=== PATIENT | female | born 1965 | race American Indian/Alaskan Native ===

== ENCOUNTER 2020-12-13 17:22 | Emergency (ER) | payer MEDICAID ==
[2020-12-13] MEDS ORDERED: HALOPERIDOL LACTATE 5 MG/1 ML INJ ONE (17:29)
[2020-12-13] MEDS ORDERED: HALOPERIDOL LACTATE 5 MG/1 ML INJ IM ONE (17:30)
--- NOTE | 2020-12-13 18:28 | Emergency Department Report ---
ED General Adult HPI - General Chief complaint: Psych Stated complaint: EVALUATION Time Seen by Provider: 12/13/20 17:39 Source: family Mode of arrival: Ambulatory Limitations: No Limitations - History of Present Illness Initial comments: Patient presents to the ED via her daughter for psychotic behavior. The daughter states that she has been a parking lot since 1:40 PM trying to get her mother to come in. Eventually the mother got the car became very aggressive and agitated in the parking lot thus PD was called. Patient escorted into the emergency department via PD. The daughter states the mom is from [facility] and has a history of bipolar and schizoaffective disorder. The patient has been banned per the daughter from the hospital in [place]. The daughter is from [facility] and drove up to get her mom from [place]. She states that she called several mental health facilities and spoke to someone Nelly was a mental health counselor who instructed her to bring the patient to our hospital for evaluation. Patient is combative and agitated on initial evaluation and trying to spit on people. Patient is not compliant with medications. Patient is not cooperative with history. -: unknown Consistency: constant Improves with: none Worsens with: none - Related Data Allergies Allergy/AdvReac Type Severity Reaction Status Date / Time No Known Allergies Allergy Verified 12/13/20 17:50 ED Review of Systems ROS: Stated complaint: EVALUATION Other details as noted in HPI Comment: Unobtainable due to pts medical conditions ED Physical Exam - General Limitations: No Limitations General appearance: alert, other (Agitated) - Head Head exam: Present: atraumatic, normocephalic - Eye Eye exam: Present: normal appearance, PERRL - ENT ENT exam: Present: other (Trach in place) - Respiratory Respiratory exam: Present: normal lung sounds bilaterally. Absent: respiratory distress - Cardiovascular Cardiovascular Exam: Present: normal rhythm, tachycardia - GI/Abdominal GI/Abdominal exam: Present: soft, normal bowel sounds. Absent: distended, tenderness - Rectal Rectal exam: Present: deferred - Extremities Exam Extremities exam: Present: normal inspection - Neurological Exam Neurological exam: Present: alert, other (Not able to complete neurological exam due to patient's condition) - Psychiatric Psychiatric exam: Present: agitated, other (Psychotic) - Skin Skin exam: Present: warm, dry, intact, normal color. Absent: rash ED Course Vital Signs 12/13/20 12/13/20 12/13/20 21:16 22:39 23:42 Temperature 98.3 F Pulse Rate 99 H Respiratory 18 Rate Blood Pressure Blood Pressure 201/101 214/67 [Right] O2 Sat by Pulse 100 100 Oximetry 12/14/20 01:06 Temperature Pulse Rate 98 H Respiratory Rate Blood Pressure 214/67 Blood Pressure [Right] O2 Sat by Pulse Oximetry ED Medical Decision Making - Lab Data Result diagrams: 12/13/20 21:22 12/13/20 21:22 Lab Results 12/13/20 12/13/20 12/13/20 Range/Units 21:22 21:22 21:22 WBC 4.4 L (4.5-11.0) K/mm3 RBC 3.87 (3.65-5.03) M/mm3 Hgb 11.4 (10.1-14.3) gm/dl Hct 35.8 (30.3-42.9) % MCV 92 (79-97) fl MCH 30 (28-32) pg MCHC 32 (30-34) % RDW 17.5 H (13.2-15.2) % Plt Count 228 (140-440) K/mm3 Lymph % (Auto) 34.5 (13.4-35.0) % [place] % (Auto) 9.7 H (0.0-7.3) % Eos % (Auto) 1.9 (0.0-4.3) % Baso % (Auto) 1.2 (0.0-1.8) % Lymph # (Auto) 1.5 (1.2-5.4) K/mm3 [place] # (Auto) 0.4 (0.0-0.8) K/mm3 Eos # (Auto) 0.1 (0.0-0.4) K/mm3 Baso # (Auto) 0.1 (0.0-0.1) K/mm3 Seg Neutrophils % 52.7 (40.0-70.0) % Seg Neutrophils # 2.3 (1.8-7.7) K/mm3 Sodium 142 (137-145) mmol/L Potassium 3.6 (3.6-5.0) mmol/L Chloride 105.8 (98-107) mmol/L Carbon Dioxide 22 (22-30) mmol/L Anion Gap 18 mmol/L BUN 19 H (7-17) mg/dL Creatinine 0.7 (0.6-1.2) mg/dL Estimated GFR > 60 ml/min BUN/Creatinine Ratio 27 % Glucose 124 H (65-100) mg/dL Calcium 9.2 (8.4-10.2) mg/dL Total Bilirubin 0.30 (0.1-1.2) mg/dL AST 22 (5-40) units/L ALT 19 (7-56) units/L Alkaline Phosphatase 120 (35-129) units/L Total Protein 7.8 (6.3-8.2) g/dL Albumin 3.7 L (3.9-5) g/dL Albumin/Globulin Ratio 0.9 % TSH 2.020 (0.270-4.200) mlU/mL Salicylates (2.8-20.0) mg/dL Acetaminophen (10.0-30.0) ug/mL Plasma/Serum Alcohol (0-0.07) % 12/13/20 12/13/20 12/13/20 Range/Units 21:22 21:22 21:22 WBC (4.5-11.0) K/mm3 RBC (3.65-5.03) M/mm3 Hgb (10.1-14.3) gm/dl Hct (30.3-42.9) % MCV (79-97) fl MCH (28-32) pg MCHC (30-34) % RDW (13.2-15.2) % Plt Count (140-440) K/mm3 Lymph % (Auto) (13.4-35.0) % [place] % (Auto) (0.0-7.3) % Eos % (Auto) (0.0-4.3) % Baso % (Auto) (0.0-1.8) % Lymph # (Auto) (1.2-5.4) K/mm3 [place] # (Auto) (0.0-0.8) K/mm3 Eos # (Auto) (0.0-0.4) K/mm3 Baso # (Auto) (0.0-0.1) K/mm3 Seg Neutrophils % (40.0-70.0) % Seg Neutrophils # (1.8-7.7) K/mm3 Sodium (137-145) mmol/L Potassium (3.6-5.0) mmol/L Chloride (98-107) mmol/L Carbon Dioxide (22-30) mmol/L Anion Gap mmol/L BUN (7-17) mg/dL Creatinine (0.6-1.2) mg/dL Estimated GFR ml/min BUN/Creatinine Ratio % Glucose (65-100) mg/dL Calcium (8.4-10.2) mg/dL Total Bilirubin (0.1-1.2) mg/dL AST (5-40) units/L ALT (7-56) units/L Alkaline Phosphatase (35-129) units/L Total Protein (6.3-8.2) g/dL Albumin (3.9-5) g/dL Albumin/Globulin Ratio % TSH (0.270-4.200) mlU/mL Salicylates < 0.3 L (2.8-20.0) mg/dL Acetaminophen 5.0 L (10.0-30.0) ug/mL Plasma/Serum Alcohol < 0.01 (0-0.07) % - Medical Decision Making 1013 applied Awaiting mental health evaluation Awaiting medical clearance Critical care attestation.: If time is entered above; I have spent that time in minutes in the direct care of this critically ill patient, excluding procedure time. ED Disposition Clinical Impression: Psychosis Disposition: [address] [place] [address] Is pt being admited?: No Does the pt Need Aspirin: No Condition: Stable Referrals: PRIMARY CARE, [Primary Care Provider] - 3-5 Days
[2020-12-13 21:50] LABS: Basophils # (Auto) 0.1 K/mm3 (0.0-0.1); Basophils % (Auto) 1.2 % (0.0-1.8); Eosinophils # (Auto) 0.1 K/mm3 (0.0-0.4); Eosinophils % (Auto) 1.9 % (0.0-4.3); Hematocrit 35.8 % (30.3-42.9); Hemoglobin 11.4 gm/dl (10.1-14.3); Lymphocytes # (Auto) 1.5 K/mm3 (1.2-5.4); Lymphocytes % (Auto) 34.5 % (13.4-35.0); Mean Corpuscular HGB Conc 32 % (30-34); Mean Corpuscular Volume 92 fl (79-97); Monocytes # (Auto) 0.4 K/mm3 (0.0-0.8); Monocytes % (Auto) 9.7 % (0.0-7.3); Platelet Count 228 K/mm3 (140-440); Red Blood Count 3.87 M/mm3 (3.65-5.03); Red Cell Distribution Width 17.5 % (13.2-15.2)
[2020-12-13 22:07] LABS: Alanine Aminotransferase 19 units/L (7-56); Albumin 3.7 g/dL (3.9-5); Blood Urea Nitrogen 19 mg/dL (7-17); Calcium 9.2 mg/dL (8.4-10.2); Hemolysis Index 20
[2020-12-13 22:15] LABS: BUN/Creatinine Ratio 27
[2020-12-13] MEDS ORDERED: hydroCHLOROthiazide 25 MG TAB PO ONE (23:46)
[2020-12-14] MEDS ORDERED: hydrALAZINE 25 MG TAB PO ONE (00:59)
--- NOTE | 2020-12-14 08:39 | Consultation ---
History of Present Illness - Reason for Consult Consult date: 12/14/20 Reason for consult: psychosis - History of Present Psychiatric Illness Per ER Note: Patient presents to the ED via her daughter for psychotic behavior. The daughter states that she has been a parking lot since 1:40 PM trying to get her mother to come in. Eventually the mother got the car became very aggressive and agitated in the parking lot thus PD was called. Patient escorted into the emergency department via PD. The daughter states the mom is from [facility] and has a history of bipolar and schizoaffective disorder. The patient has been banned per the daughter from the hospital in [place]. The daughter is from [facility] and drove up to get her mom from [place]. She states that she called several mental health facilities and spoke to someone Nelly was a mental health counselor who instructed her to bring the patient to our hospital for evaluation. Patient is combative and agitated on initial evaluation and trying to spit on people. Patient is not compliant with medications. Patient is not cooperative with history. The patient was seen today. She is paranoid and aggressive. She is uncooperative. When I attempted to speak to her, she stared at me angrily and snares her nose at me. She refused to cooperate with the evaluation. PAST PSYCHIATRIC HISTORY Unable to assess PAST MEDICAL HISTORY: None reported Family Psychiatric History: None reported or documented SOCIAL HISTORY Unable to assess REVIEW OF SYSTEMS Unable to assess MENTAL STATUS EXAMINATION Unable to assess Assessment and Plan (1) Schizoaffective Disorder TREATMENT PLAN 1013 Olanzapine 5mg po daily Depakote DR 125mg po BID Trazodone 50mg po qhs Sitter: per primary Medical: per primary Disposition: Recommend acute psychiatric inpatient treatment Will follow. Thanks Case staffed with Dr. Garcia Medications and Allergies Allergies Allergy/AdvReac Type Severity Reaction Status Date / Time No Known Allergies Allergy Verified 12/13/20 17:50 Mental Status Exam - Vital signs Last Vital Signs Temp 98.3 F 12/13/20 21:16 Pulse 98 H 12/14/20 01:06 Resp 18 12/13/20 21:16 BP 214/67 12/14/20 01:06 Pulse Ox 100 12/13/20 23:42 Results Result Diagrams: 12/13/20 21:22 12/13/20 21:22 Abnormal lab results 12/13/20 12/13/2012/13/21 Range/Units 21:22 21:22 21:22 WBC 4.4 L (4.5-11.0) K/mm3 RDW 17.5 H (13.2-15.2) % Carbon % (Auto) 9.7 H (0.0-7.3) % BUN 19 H (7-17) mg/dL Glucose 124 H (65-100) mg/dL Albumin 3.7 L (3.9-5) g/dL Salicylates < 0.3 L (2.8-20.0) mg/dL Acetaminophen (10.0-30.0) ug/mL 12/13/20 Range/Units 21:22 WBC (4.5-11.0) K/mm3 RDW (13.2-15.2) % Carbon % (Auto) (0.0-7.3) % BUN (7-17) mg/dL Glucose (65-100) mg/dL Albumin (3.9-5) g/dL Salicylates (2.8-20.0) mg/dL Acetaminophen 5.0 L (10.0-30.0) ug/mL All other labs normal.
--- NOTE | 2020-12-14 11:13 | Event Note ---
Date: 12/14/20 Patient is continue to exhibit some paranoid and psychotic behavior. Also some aggression as well. Patient will to remain 1013. Mental health assessment for today is as below. Patient is medically cleared and will reviewed the patient's medications for reconciliation. Psychiatric Consult Note Patient Name: MARISOL FARNSWORTH Date of : 1965 Patient Status: Emergency Emergency Provider: ARLIN ASKEW Date: 12/14/20 08:38 Initialization Date: 12/14/20 08:38 History of Present Illness - Reason for Consult Consult date: 12/14/20 Reason for consult: psychosis - History of Present Psychiatric Illness Per ER Note: Patient presents to the ED via her daughter for psychotic behavior. The daughter states that she has been a parking lot since 1:40 PM trying to get her mother to come in. Eventually the mother got the car became very aggressive and agitated in the parking lot thus PD was called. Patient escorted into the emergency department via PD. The daughter states the mom is from [facility] and has a history of bipolar and schizoaffective disorder. The patient has been banned per the daughter from the hospital in [place]. The daughter is from [facility] and drove up to get her mom from [place]. She states that she called several mental health facilities and spoke to someone Nelly was a mental health counselor who instructed her to bring the patient to our hospital for evaluation. Patient is combative and agitated on initial evaluation and trying to spit on people. Patient is not compliant with medications. Patient is not cooperative with history. The patient was seen today. She is paranoid and aggressive. She is uncooperativ e. When I attempted to speak to her, she stared at me angrily and snares her nose at me. She refused to cooperate with the evaluation. PAST PSYCHIATRIC HISTORY Unable to assess PAST MEDICAL HISTORY: None reported Family Psychiatric History: None reported or documented SOCIAL HISTORY Unable to assess REVIEW OF SYSTEMS Unable to assess MENTAL STATUS EXAMINATION Unable to assess Assessment and Plan (1) Schizoaffective Disorder TREATMENT PLAN 1013 Olanzapine 5mg po daily Depakote DR 125mg po BID Trazodone 50mg po qhs Sitter: per primary Medical: per primary Disposition: Recommend acute psychiatric inpatient treatment Will follow. Thanks Case staffed with Dr. Garcia
[2020-12-14] MEDS: DIVALPROEX DR 125 MG TAB PO SCH ×2 (12:04→22:47)
[2020-12-14] MEDS ORDERED: traZODone 50 MG TAB PO SCH (22:00)
[2020-12-15] MEDS: DIVALPROEX DR 125 MG TAB PO SCH (09:34)
--- NOTE | 2020-12-15 11:01 | Event Note ---
Date: 12/15/20 The patient was evaluated in the emergency department for symptoms described in the history of present illness. He/she was evaluated in the context of the global COVID-19 pandemic, which necessitated consideration that the patient might be at risk for infection with the virus that causes COVID-19. Institutional protocols and algorithms that pertain to the evaluation of patients at risk for COVID-19 are in a state of rapid change based on information released by regulatory bodies including the CDC and federal and state organizations. These policies and algorithms were followed during the patient's care in the emergency department. Please note that these policies, procedures and recommendations changed on a rapid basis. Laboratory studies, vital signs, nursing documentation, ER documentation, and psychiatric documentation are reviewed and appreciated. Nursing team reports no acute events this morning or concerns. The patient is requesting to have her 6 uncuffed tracheostomy tube change. Have reached out to respiratory therapy to request assistance with this. Have also requested that nursing team reconcile home medications. The patient is awake and ambulating and does not appear to be in any acute distress. The patient was deemed medically suitable for psychiatric disposition and placement during his initial ER evaluation. The patient continues to remain medically suitable for psychiatric placement and disposition. sHe is currently pending psychiatric placement. 12/15/2020; 13: 28 PM Patient provided 6 Portuguese tracheostomy tube for change, which she changed herself without difficulty. She is awake, alert, oriented, sober, and walking with a steady gait. She denies physical complaints to myself. Psychiatric team have recommended discharge and discontinuation of 1013. The patient may follow-up with her outpatient primary care doctor for chronically elevated blood pressure Vital Signs 12/13/20 12/13/20 12/13/20 21:16 22:39 23:42 Temperature 98.3 F Pulse Rate 99 H Respiratory 18 Rate Blood Pressure Blood Pressure 201/101 214/67 [Right] O2 Sat by Pulse 100 100 Oximetry 12/14/20 12/14/20 01:06 07:30 Temperature 98.0 F Pulse Rate 98 H 90 Respiratory 18 Rate Blood Pressure 214/67 Blood Pressure 144/77 [Right] O2 Sat by Pulse 100 Oximetry Lab Results 12/13/20 12/13/20 12/13/20 Range/Units 21:22 21:22 21:22 WBC 4.4 L (4.5-11.0) K/mm3 RBC 3.87 (3.65-5.03) M/mm3 Hgb 11.4 (10.1-14.3) gm/dl Hct 35.8 (30.3-42.9) % MCV 92 (79-97) fl MCH 30 (28-32) pg MCHC 32 (30-34) % RDW 17.5 H (13.2-15.2) % Plt Count 228 (140-440) K/mm3 Lymph % (Auto) 34.5 (13.4-35.0) % [place] % (Auto) 9.7 H (0.0-7.3) % Eos % (Auto) 1.9 (0.0-4.3) % Baso % (Auto) 1.2 (0.0-1.8) % Lymph # (Auto) 1.5 (1.2-5.4) K/mm3 [place] # (Auto) 0.4 (0.0-0.8) K/mm3 Eos # (Auto) 0.1 (0.0-0.4) K/mm3 Baso # (Auto) 0.1 (0.0-0.1) K/mm3 Seg Neutrophils % 52.7 (40.0-70.0) % Seg Neutrophils # 2.3 (1.8-7.7) K/mm3 Sodium 142 (137-145) mmol/L Potassium 3.6 (3.6-5.0) mmol/L Chloride 105.8 (98-107) mmol/L Carbon Dioxide 22 (22-30) mmol/L Anion Gap 18 mmol/L BUN 19 H (7-17) mg/dL Creatinine 0.7 (0.6-1.2) mg/dL Estimated GFR > 60 ml/min BUN/Creatinine Ratio 27 % Glucose 124 H (65-100) mg/dL Calcium 9.2 (8.4-10.2) mg/dL Total Bilirubin 0.30 (0.1-1.2) mg/dL AST 22 (5-40) units/L ALT 19 (7-56) units/L Alkaline Phosphatase 120 (35-129) units/L Total Protein 7.8 (6.3-8.2) g/dL Albumin 3.7 L (3.9-5) g/dL Albumin/Globulin Ratio 0.9 % TSH 2.020 (0.270-4.200) mlU/mL Salicylates (2.8-20.0) mg/dL Acetaminophen (10.0-30.0) ug/mL Plasma/Serum Alcohol (0-0.07) % Coronavirus (PCR) (Negative) 12/13/20 12/13/20 12/13/20 Range/Units 21:22 21:22 21:22 WBC (4.5-11.0) K/mm3 RBC (3.65-5.03) M/mm3 Hgb (10.1-14.3) gm/dl Hct (30.3-42.9) % MCV (79-97) fl MCH (28-32) pg MCHC (30-34) % RDW (13.2-15.2) % Plt Count (140-440) K/mm3 Lymph % (Auto) (13.4-35.0) % [place] % (Auto) (0.0-7.3) % Eos % (Auto) (0.0-4.3) % Baso % (Auto) (0.0-1.8) % Lymph # (Auto) (1.2-5.4) K/mm3 [place] # (Auto) (0.0-0.8) K/mm3 Eos # (Auto) (0.0-0.4) K/mm3 Baso # (Auto) (0.0-0.1) K/mm3 Seg Neutrophils % (40.0-70.0) % Seg Neutrophils # (1.8-7.7) K/mm3 Sodium (137-145) mmol/L Potassium (3.6-5.0) mmol/L Chloride (98-107) mmol/L Carbon Dioxide (22-30) mmol/L Anion Gap mmol/L BUN (7-17) mg/dL Creatinine (0.6-1.2) mg/dL Estimated GFR ml/min BUN/Creatinine Ratio % Glucose (65-100) mg/dL Calcium (8.4-10.2) mg/dL Total Bilirubin (0.1-1.2) mg/dL AST (5-40) units/L ALT (7-56) units/L Alkaline Phosphatase (35-129) units/L Total Protein (6.3-8.2) g/dL Albumin (3.9-5) g/dL Albumin/Globulin Ratio % TSH (0.270-4.200) mlU/mL Salicylates < 0.3 L (2.8-20.0) mg/dL Acetaminophen 5.0 L (10.0-30.0) ug/mL Plasma/Serum Alcohol < 0.01 (0-0.07) % Coronavirus (PCR) (Negative) 12/13/20 Range/Units Unknown WBC (4.5-11.0) K/mm3 RBC (3.65-5.03) M/mm3 Hgb (10.1-14.3) gm/dl Hct (30.3-42.9) % MCV (79-97) fl MCH (28-32) pg MCHC (30-34) % RDW (13.2-15.2) % Plt Count (140-440) K/mm3 Lymph % (Auto) (13.4-35.0) % [place] % (Auto) (0.0-7.3) % Eos % (Auto) (0.0-4.3) % Baso % (Auto) (0.0-1.8) % Lymph # (Auto) (1.2-5.4) K/mm3 [place] # (Auto) (0.0-0.8) K/mm3 Eos # (Auto) (0.0-0.4) K/mm3 Baso # (Auto) (0.0-0.1) K/mm3 Seg Neutrophils % (40.0-70.0) % Seg Neutrophils # (1.8-7.7) K/mm3 Sodium (137-145) mmol/L Potassium (3.6-5.0) mmol/L Chloride (98-107) mmol/L Carbon Dioxide (22-30) mmol/L Anion Gap mmol/L BUN (7-17) mg/dL Creatinine (0.6-1.2) mg/dL Estimated GFR ml/min BUN/Creatinine Ratio % Glucose (65-100) mg/dL Calcium (8.4-10.2) mg/dL Total Bilirubin (0.1-1.2) mg/dL AST (5-40) units/L ALT (7-56) units/L Alkaline Phosphatase (35-129) units/L Total Protein (6.3-8.2) g/dL Albumin (3.9-5) g/dL Albumin/Globulin Ratio % TSH (0.270-4.200) mlU/mL Salicylates (2.8-20.0) mg/dL Acetaminophen (10.0-30.0) ug/mL Plasma/Serum Alcohol (0-0.07) % Coronavirus (PCR) Negative (Negative)
--- NOTE | 2020-12-15 12:18 | Progress Note ---
Subjective - Reason for Consult Consult date: 12/15/20 Reason for consult: mental health evaluation - Chief Complaint Chief complaint: The patient was seen this morning,she is calm. The patient reports doing well. She reports sleep and appetite as okay. The patient denies any current suicidal/homicidal ideation and denies hallucinations. PAST PSYCHIATRIC HISTORY Unable to assess PAST MEDICAL HISTORY: None reported Family Psychiatric History: None reported or documented SOCIAL HISTORY Unable to assess REVIEW OF SYSTEMS Unable to assess MENTAL STATUS EXAMINATION Unable to assess Assessment and Plan (1) Schizoaffective Disorder TREATMENT PLAN Discontinue 1013 Olanzapine 5mg po daily Depakote DR 125mg po BID Trazodone 50mg po qhs Sitter: per primary Medical: per primary Disposition: Do not recommend acute psychiatric inpatient treatment. Will fosign off. Thanks Case staffed with Dr. Garcia Mental Status Exam - Vital signs Last Vital Signs Temp 98.0 F 12/14/20 07:30 Pulse 90 12/14/20 07:30 Resp 18 12/14/20 07:30 BP 144/77 12/14/20 07:30 Pulse Ox 100 12/14/20 07:30
[2020-12-15 15:03] VITALS: BP 111/67
== END 2020-12-15 15:01 | disposition home or self-care (01) ==
LOC: EEVIPCON 17:22 → ED 17:22
DX: F29 Unspecified psychosis not due to a substance or known physiological condition (principal); Z20.822 Contact with and (suspected) exposure to COVID-19
CPT/HCPCS: 36415; 80053; 84443; 85025; 96372; 99284; J1630; U0003; 80320; G0480